=== PATIENT | male | born 2000 | race African-American/Black ===

== ENCOUNTER 2022-05-30 07:48 | Emergency (ER) | payer OTHER ==
[2022-05-30 08:00] VITALS: BP 118/78; PULSE 84; RESP 16; TEMP 98.3; BMI 16.7
== END 2022-05-30 13:20 | disposition home or self-care (01) ==
LOC: FER 07:48
DX: S09.93XA Unspecified injury of face, initial encounter (principal); W01.198A Fall on same level from slipping, tripping and stumbling with subsequent striking against other object, initial encounter
CPT/HCPCS: 70486-TC; 72125-TC; 99284-25